=== PATIENT | male | born 1965 ===

== ENCOUNTER 2016-11-12 22:34 | Emergency (ER) | payer BC ==
[2016-11-12 22:35] VITALS: BMI 22.8
[2016-11-12 22:39] VITALS: BP 124/76; PULSE 102; RESP 16; TEMP 97.4; O2SAT 98
[2016-11-12] MEDS ORDERED: Albuterol 0.083% Inhal Sol (2.5 mg/3 mL) UD INH ONE (23:54)
--- NOTE | 2016-11-13 00:36 | ED PDOC ---
HPI: Psych/Substance Abuse Time Seen by Provider: 11/12/16 22:40 Chief Complaint (Nursing): Substance Abuse Chief Complaint (Provider): Possible Overdose History Per: Patient, EMS History/Exam Limitations: no limitations Onset/Duration Of Symptoms: Hrs Current Symptoms Are (Timing): Still Present Modifying Factor(s): None, Other (Xanax) Additional History Per: EMS Additional Complaint(s): Srikanth Patel, a 51 year old male, who has a history of asthma and pneumonia was bought in to the ED by the paramedics for a possible overdose.The patient admits that he had previously took a "bunch' of xanax and had consumed alcohol. The paramedics report that he seemed very "sleepy" and because of this they gave him 4mg of narcan nasally, which successfully woke him up. Upon arrival to the ED the patient was alert and oriented x3. The patient denies having a fever or cough but does have some shortness of breath due to his asthma. PCP: Non [facility] Provider Past Medical History Reviewed: Historical Data, Nursing Documentation, Vital Signs Vital Signs: Last Vital Signs Temp 97.4 F L 11/12/16 22:36 Pulse 102 H 11/12/16 22:36 Resp 16 11/12/16 22:36 BP 124/76 11/12/16 22:36 Pulse Ox 98 11/12/16 22:36 - Medical History PMH: Asthma, Pneumonia Denies: Depression - Surgical History Surgical History: Hernia Repair - Family History Family History: States: Unknown Family Hx - Social History Current smoker - smoking cessation education provided: Yes (a few packs per day) Alcohol: Occasional - Home Medications Home Medications: Ambulatory Orders Medication Instructions Recorded Albuterol Sulfate [Albuterol Hfa] 0.09 mg IH Q4 PRN #1 unit 10/07/12 Cyclobenzaprine [Cyclobenzaprine 10 mg PO Q6 PRN #20 tab 07/20/16 HCl] Ibuprofen [Motrin] 600 mg PO Q6 PRN #20 tab 07/20/16 Albuterol HFA [Ventolin HFA 90 1 - 2 puff IH Q4H PRN #1 bottle 11/13/16 mcg/actuation (8 g)] - Allergies Allergies/Adverse Reactions: Allergies Allergy/AdvReac Type Severity Reaction Status Date / Time pcn Allergy ANAPHYLAXIS Uncoded 07/20/16 13:46 Review of Systems ROS Statement: Except As Marked, All Systems Reviewed And Found Negative Constitutional: Negative for: Fever Respiratory: Positive for: Shortness of Breath (Due to asthma). Negative for: Cough Physical Exam - Reviewed Nursing Documentation Reviewed: Yes Vital Signs Reviewed: Yes - Physical Exam Appears: Positive for: Non-toxic, No Acute Distress Head Exam: Positive for: ATRAUMATIC, NORMOCEPHALIC Skin: Positive for: Normal Color, Warm, Dry Eye Exam: Positive for: Normal appearance, PERRL ENT: Positive for: Normal ENT Inspection Neck: Positive for: Normal, Painless ROM, Supple Cardiovascular/Chest: Positive for: Regular Rate, Rhythm, Chest Non Tender Respiratory: Positive for: Wheezing (Wheezing throughout). Negative for: Respiratory Distress Gastrointestinal/Abdominal: Positive for: Normal Exam, Soft. Negative for: Tenderness Back: Positive for: Normal Inspection. Negative for: L CVA Tenderness, R CVA Tenderness Extremity: Positive for: Normal ROM. Negative for: Tenderness, Deformity, Swelling Neurologic/Psych: Positive for: Alert, Oriented (Alert and Oriented x3) - Laboratory Results Result Diagrams: 11/12/16 00:34 11/12/16 00:34 - ECG O2 Sat by Pulse Oximetry: 98 (RA) Pulse Ox Interpretation: Normal Medical Decision Making Medical Decision Makin:57 Initial Impression: 51 year old male patient presenting with Possible Overdose and Asthma Initial Plan: * EKG * Acetaminophen * alcohol serum * CMP * Drug screen * Salicylte * Troponin 1 * CBC * CXR * Albuterol 0.083% inhal 2.5mg INH * prednisone 50mg PO * Peak flow pre/post * Call poison control * reevaluation Patient was treated for asthma with duoneb and a chest Xray was done to rule out pnuemonia. By view of Xrays the patient does not have pnuemonia. pt feels better poision control called as per RN notes Alchohol Level: [phone] Upon provider reevaluation patient is feeling better, is medically stable, stable gait, and requires no further treatment in the ED at this time. Patient will be discharged home with family. Dx: Alcohol Intoxication and Asthma Exacerbation. Rx: Albuterol pt instructed to follow up with pcp, detox Condition: Stable Scribe Attestation Documented by Kia Gil acting as a scribe for Olu Ramirez MD. Provider Attestation: All medical record entries made by the Scribe were at my direction and personally dictated by me. I have reviewed the chart and agree that the record accurately reflects my personal performance of the history, physical exam, medical decision making, and the department course for this patient. I have also personally directed, reviewed, and agree with the discharge instructions and disposition. Disposition - Clinical Impression Clinical Impression: Alcohol intoxication, Asthma - Patient ED Disposition Is Patient to be Admitted: No Counseled Patient/Family Regarding: Studies Performed, Rx Given - Disposition Referrals: [facility] [Outside] [facility] [Outside] Disposition: Routine/Home Disposition Time: 01:00 Condition: IMPROVED Additional Instructions: follow up with your primary doctor/detox return to ED with any worsening or concerning symptoms. Prescriptions: Albuterol HFA [Ventolin HFA 90 mcg/actuation (8 g)] 1 - 2 puff IH Q4H PRN #1 bottle PRN Reason: Wheezing Instructions: Asthma (ED), Alcohol Intoxication (ED)
[2016-11-13 00:37] LABS: BASO # 0.1 K/uL (0.0-0.2); BASO % 1.1 % (0.0-2.0); EOS # 0.1 K/uL (0.0-0.7); EOS % 0.6 % (0.0-4.0); HEMATOCRIT 49.1 % (35.0-51.0); LYMPH # 1.3 K/uL (1.0-4.3); LYMPH % 11.8 % (20.0-40.0); MEAN CELL VOLUME 93.6 fl (80.0-94.0); MEAN CORPUSCULAR HEMOGLOBIN 31.2 pg (27.0-31.0); MEAN CORPUSCULAR HGB CONC 33.4 g/dL (33.0-37.0); MEAN PLATELET VOLUME 7.4 fl (7.2-11.7); MONO # 0.7 K/uL (0.0-0.8); MONO % 6.2 % (0.0-10.0); NEUT # 8.6 K/uL (1.8-7.0); NEUT % 80.3 % (50.0-75.0); RED CELL DISTRIBUTION WIDTH 13.6 % (11.5-14.5); WHITE BLOOD COUNT 10.7 K/uL (4.8-10.8)
[2016-11-13 00:46] LABS: ALB/GLOB RATIO 1.4 (1.0-2.1); ALCOHOL SERUM 287 mg/dl (0-10); ALKALINE PHOSPHATASE 83 U/L (38-126); ALT/SGPT 53 U/L (21-72); AST/SGOT 41 U/L (17-59); BILIRUBIN,TOTAL 0.2 mg/dl (0.2-1.3); BLOOD UREA NITROGEN 9 mg/dl (9-20); CALCIUM 8.6 mg/dL (8.4-10.2); CARBON DIOXIDE 29 mmol/L (22-30); CHLORIDE 106 mmol/L (98-107); GFR AFRICAN-AMERICAN > 60; GLUCOSE,RANDOM 118 mg/dL (75-110); POTASSIUM 3.9 MMOL/L (3.6-5.0); SODIUM 149 mmol/l (132-148); TOTAL PROTEIN 8.6 G/DL (6.3-8.2)
[2016-11-13] MEDS ORDERED: Sodium Chloride 0.9% 1,000 ML IV STA (01:19)
[2016-11-13] MEDS ORDERED: Albuterol 0.083% Inhal Sol (2.5 mg/3 mL) UD ONE (02:47)
[2016-11-13] MEDS ORDERED: Albuterol 0.083% Inhal Sol (2.5 mg/3 mL) UD INH ONE (05:40)
--- NOTE | 2016-11-13 08:24 | RAD ---
HISTORY: Shortness of breath. COMPARISON: 09/13/2011. TECHNIQUE: Chest PA and lateral FINDINGS: LUNGS: No active pulmonary disease. PLEURA: No significant pleural effusion identified. No pneumothorax apparent. CARDIOVASCULAR: Normal. OSSEOUS STRUCTURES: No significant abnormalities. VISUALIZED UPPER ABDOMEN: Normal. OTHER FINDINGS: None. IMPRESSION: No active disease. No significant interval change compared to the prior examination(s). Concordant results with the preliminary interpretation rendered by the emergency department physician procedure.
--- NOTE | 2016-11-14 02:16 | CARD ---
APPROVED REPORT EKG Measurement Heart [id number] <Conclusion> Normal sinus rhythm with sinus arrhythmia Normal ECG
== END 2016-11-13 04:45 | disposition home or self-care (01) ==
LOC: H.ER 22:34
DX: F10.129 Alcohol abuse with intoxication, unspecified (principal); J45.901 Unspecified asthma with (acute) exacerbation; Z88.0 Allergy status to penicillin; F17.210 Nicotine dependence, cigarettes, uncomplicated
CPT/HCPCS: 71020; 80053; 83735; 84484; 85025; 93005; 94640; 99284; G0480; J7040